=== PATIENT | female | born 1960 | race African-American/Black ===

== ENCOUNTER 2019-10-24 09:34 | Emergency (ER) | payer BC ==
[~2019-10-24] VITALS: Ht 160 cm; Wt 54.4 kg
[2019-10-24] MEDS ORDERED: HYDROCHLOROTHIA25 M2 PO (10:29)
[2019-10-24] MEDS ORDERED: AMLODIPINE BESY10 MG PO (10:29)
[2019-10-24] MEDS ORDERED: KLOR-CON 1010 MEQ PO (10:30)
[2019-10-24] MEDS ORDERED: REPLESTA50000 UNIT PO (10:32)
[2019-10-24 10:48] LABS: URINE BILIRUBIN NEGATIVE (Negative); URINE BLOOD NEGATIVE (Negative); URINE CLARITY CLEAR; URINE COLOR YELLOW; URINE GLUCOSE-RANDOM* NEGATIVE (Negative); URINE KETONES NEGATIVE (Negative); URINE LEUKOCYTES-REFLEX NEGATIVE (Negative); URINE NITRITE-REFLEX NEGATIVE (Negative); URINE PROTEIN (DIPSTICK) NEGATIVE (Negative); URINE SPECIFIC GRAVITY >= 1.030 (1.005-1.035); URINE UROBILINOGEN 0.2 E.U./dl (0.2-1.0)
[2019-10-24 10:54] LABS: ABSOLUTE NEUTROPHILS 6.6 thou/uL (1.4-8.2); BASOPHILS 0.4 % (0.0-2.0); CALCIUM 9.1 mg/dL (8.5-10.1); CREATININE 0.6 mg/dL (0.6-1.0); EOSINOPHILS 0.2 % (0.0-3.0); HEMATOCRIT 35.3 % (37.0-47.0); HEMOGLOBIN 11.7 gm/dL (12.0-15.0); LYMPHOCYTES 25.6 % (24.0-44.0); MCH 31.1 pg (26.0-34.0); MCHC 33.1 g/dL (28.0-37.0); MCV 93.9 fL (80.0-100.0); MONOCYTES 5.5 % (1.0-8.0); PLATELET COUNT 155 thou/uL (150-400); POLYS 68.3 % (36.0-66.0); POTASSIUM 3.1 mmol/L (3.5-5.1); RBC 3.76 mil/uL (4.20-5.00); RDW 13.7 % (10.5-14.5); WBC 9.6 thou/uL (4.0-11.0)
[2019-10-24 11:00] LABS: ALBUMIN 4.3 g/dL (3.4-5.0); TOTAL BILIRUBIN 0.2 mg/dL (<0.1-1.0); TOTAL PROTEIN 8.8 g/dL (6.4-8.2)
[2019-10-24] MEDS ORDERED: MOBIC15 MG PO (14:24)
[2019-10-24 14:28] VITALS: BP 147/102
== END 2019-10-24 14:32 | disposition home or self-care (01) ==
LOC: ER 09:34
PROVIDERS: Emergency Medicine
DX: R10.11 Right upper quadrant pain (principal); F17.210 Nicotine dependence, cigarettes, uncomplicated